=== PATIENT | female | born 1995 | race Caucasian/White ===

== ENCOUNTER 2022-01-23 18:42 | Emergency (ER) | payer MEDICAID ==
[~2022-01-23] VITALS: Ht 157.5 cm; Wt 78.0 kg
[2022-01-23 18:46] VITALS: BP 102/60
[2022-01-23] MEDS ORDERED: ACETAMINOPHEN 325MG TABLET PO PRN (19:00)
[2022-01-23 19:55] LABS: BASOPHILS % 0.7 % (0.0-2.0); EOSINOPHILS % 1.4 % (0.0-5.0); HEMATOCRIT. 31.3 % (36.0-48.0); HEMOGLOBIN. 10.1 g/dL (12.0-16.0); LYMPHOCYTES % 16.9 % (20.0-50.0); MEAN CORPUSCULAR HEMOGLOBIN 23.8 pg (28.0-32.0); MEAN CORPUSCULAR VOLUME 74.2 fL (81.0-99.0); MEAN PLATELET VOLUME 8.9 fl (7.4-10.4); PLATELET 226 x1000/uL (130-400); RED BLOOD CELL COUNT 4.23 mill/uL (4.2-5.4); RED CELL DISTRIBUTION WIDTH 27.7 % (11.6-14.6)
[2022-01-23 20:07] LABS: CHLORIDE 106 mEq/L (98-107)
[2022-01-23 20:30] LABS: B-HCG QUANTITATIVE 1427 mIU/mL (<3)
[2022-01-23 21:24] LABS: PLATELET ESTIMATE NORMAL
== END 2022-01-24 00:30 | disposition left against medical advice (07) ==
LOC: ER 18:42
DX: O46.92 Antepartum hemorrhage, unspecified, second trimester (principal); Z3A.14 14 weeks gestation of pregnancy
CPT/HCPCS: 36415; 80053; 84702; 85025; 86850; 86900; 99283